=== PATIENT | female | born 1995 | race Caucasian/White ===

== ENCOUNTER 2020-06-16 19:56 | Emergency (ER) | payer MEDICAID ==
[~2020-06-16] VITALS: Ht 152.4 cm; Wt 68.5 kg
[2020-06-16 20:12] VITALS: Ht 152.4 cm; Wt 68.5 kg
[2020-06-16 20:37] LABS: BASOPHIL % 0.2 % (0.2-1.3); CALCIUM 8.8 mg/dL (8.5-10.1); CARBON DIOXIDE 31.8 mmol/L (21-32); CHLORIDE SERUM 101 mmol/L (98-107); CREATININE SERUM 0.7 mg/dL (0.6-1.0); GFR1 > 60 mL/min; GLUCOSE SERUM 94 mg/dL (74-106); POTASSIUM SERUM 4.8 mmol/L (3.5-5.1); RED CELL DISTRIBUTION WIDTH 13.7 % (12.3-17.7); SODIUM SERUM 139 mmol/L (136-145)
[2020-06-16 20:38] LABS: PLATELET COUNT 561 x10^3mcL (179-408)
[2020-06-16 20:42] LABS: ALKALINE PHOSPHATASE 73 U/L (46-116); ALT/SGPT 23 U/L (14-59); AST/SGOT 16 U/L (15-37); BILIRUBIN TOTAL 0.4 mg/dL (0.20-1.00); TOTAL PROTEIN, SERUM 7.4 g/dL (6.4-8.2)
[2020-06-16 20:43] LABS: ALBUMIN 3.3 g/dL (3.4-5.0)
[2020-06-16 22:55] LABS: MAGNESIUM 2.3 mg/dL (1.8-2.4); PHOSPHOROUS 4.5 mg/dL (2.5-4.9)
[2020-06-16 23:19] LABS: microscopic required? YES; urine erythrocyte 2+ (NEGATIVE)
[2020-06-16 23:34] LABS: AMPHETAMINE QUAL UR NONE DETECTED (See below)
[2020-06-17] MEDS ORDERED: ONDANSETRON4 M3 PO (00:12)
[2020-06-17] MEDS ORDERED: NAPROXEN SODIU500 M2 PO (00:12)
[2020-06-17 00:28] VITALS: BP 87/49
== END 2020-06-17 00:29 | disposition home or self-care (01) ==
LOC: ED 19:56
PROVIDERS: Emergency Medicine
DX: R10.32 Left lower quadrant pain (principal); R11.2 Nausea with vomiting, unspecified; Z20.822 Contact with and (suspected) exposure to COVID-19; Z98.84 Bariatric surgery status
CPT/HCPCS: J1885; J2270; J2405; J2765; J7030; Q9966